=== PATIENT | female | born 1990 | race Caucasian/White ===

== ENCOUNTER → 2021-04-03 10:51 | Outpatient (CLI) | payer OTHER, SELFPAY ==
[2021-04-03 13:54] LABS: COVID19 -Nasal RAPID Negative (Negative)
== END ==
PROVIDERS: PCP Physician Assistant; Visit Provider Family Medicine Sleep Medicine
DX: Z20.822 Contact with and (suspected) exposure to COVID-19 (principal)
CPT/HCPCS: 87635; C9803

== ENCOUNTER 2021-04-06 12:30 | Day surgery (SDC) | payer OTHER, SELFPAY ==
[2021-04-06 12:56] VITALS: BP 137/89; PULSE 82; RESP 16; TEMP 37.9; O2SAT 100; BMI 27.4
[2021-04-06] MEDS: SODIUM CHLORIDE 0.9% 1,000 ML 84 ML IV (13:17)
--- NOTE | 2021-04-06 13:31 | PM.HP.1 ---
History of Present Illness History of Present Illness Date Patient Seen: 04/06/21 Time Patient Seen: 13:35 Chief complaint: DX COLONOSCOPY Narrative: Family history of colon cancer in her mother at age 29. Prior colonoscopy was negative in 2016. Patient History Family & Social History Social History: household members spouse Tobacco & Substance use: Tobacco type e-cigarettes Smoking Status Current every day smoker alcohol intake frequency a few times a month Substance Use Type does not use Meds Home Medications and Allergies Home Medications Medication Instructions Recorded Confirmed Type No Known Home Medications 04/06/21 04/06/21 History Allergies Allergy/AdvReac Type Severity Reaction Status Date / Time No Known Drug Allergies Allergy Verified 04/06/21 12:54 Review of Systems Review of Systems ROS: Yes All systems reviewed with the patient and are negative except as otherwise documented Exam Vital Signs (past 8 hours): - 04/06/21 12:56 Temperature 100.3 F H Pulse Rate 82 Respiratory Rate 16 Blood Pressure 137/89 Pulse Oximetry 100 Oxygen Delivery Method Room Air Const General: cooperative and comfortable Orientation: alert HENMT Head: normocephalic Ears: external ears normal Nose: external nose normal Face and sinus: normal facial exam Mouth: oral mucosae normal Eyes General: appearance normal, both eyes and all related structures Neck Neck: normal visual inspection Chest Chest: normal inspection of the chest Resp Effort & Inspection: normal respiratory effort GI Inspection: normal to inspection Skin General: no rashes or lesions noted and No jaundice Neuro General: patient alert and moves all extremities Cognition: normal cognition Speech: speech normal Extrem General: no pedal edema Psych Appearance: grossly normal Assessment & Plan Assessment & Plan narrative: 30-year-old female with a family history of colon cancer. Colonoscopy is pursued today. Time Spent With Patient Critical Care time: I spent a total of [] minutes of critical care time on this patient's care today; this time is exclusive of procedural time.
--- NOTE | 2021-04-06 13:37 | PM.PREOP ---
Pre-operative Note COVID-19 COVID-19 status: Negative Result date/Date tested (Pos, Neg/Pending): 04/03/21 Criteria for continued procedure: Possibility delay results in more complex future surgery or treatment Interval Note History & Physical reviewed/Exam performed by Physician: Yes Changes to H&P: No ASA Class (for procedural sedation): I
--- NOTE | 2021-04-06 14:47 | P.OP.COLON_ITS ---
Operative Date/Time/Diagnoses Date of procedure: 04/06/21 Time of procedure: 14:47 Pre-op diagnosis: Family history of colon cancer Post-op diagnosis: same Procedure & Clinicians Study performed: Colonoscopy Same procedure as scheduled: Yes Indications: Family history of colon cancer Surgeon: Levy Jackson Procedure Notes SCOAP/Timeout: Done Procedure in detail: After the risks and benefits were explained, written and verbal informed consent was obtained. The patient was brought into the procedure room and placed into the left lateral decubitus position. Please see nurse enterprise mobility architect notes for sedation details. Digital rectal examination was accomplished. The scope was introduced into the patient and advanced under direct visualization to the cecum as identified by the appendiceal orifice and ileocecal valve. The scope was slowly withdrawn to carefully examine the mucosa for any defects or lesions. Comprehensive imaging was accomplished throughout the rectum including the dentate line. The colon was decompressed, the scope was then removed from the patient who tolerated the procedure well. Bowel prep adequate Pediatric colonoscope Scope withdrawal time: 8 minutes Sedation minutes: 15 Specimen(s): none sent Complications: none Impression: No significant polyps mass lesions or inflammatory features identified throughout. Endoscopic diagnosis Visually normal colonoscopy Post-procedure Recommendations: Colonoscopy in 5 years Plan for aftercare: Considering family history, repeat colonoscopy 5 years. Disposition: PACU
[2021-04-06 14:49] VITALS: BP 126/86; PULSE 80; RESP 16; TEMP 36.2; O2SAT 98
[2021-04-06 14:51] VITALS: BP 122/72; PULSE 67; RESP 16; O2SAT 100
[2021-04-06 14:55] VITALS: BP 130/90; PULSE 65; RESP 16; O2SAT 99
[2021-04-06 15:00] VITALS: BP 130/88; PULSE 86; RESP 16; O2SAT 99
== END 2021-04-06 15:21 | disposition home or self-care (01) ==
PROVIDERS: PCP Physician Assistant; Referring Provider Internal Medicine Gastroenterology; Visit Provider Internal Medicine Gastroenterology
PROC: 0DJD8ZZ Inspection of Lower Intestinal Tract, Via Natural or Artificial Opening Endoscopic (ICD-10-PCS; CPT 45378; principal; 2021-04-06 14:30)
DX: Z12.11 Encounter for screening for malignant neoplasm of colon (principal); Z80.0 Family history of malignant neoplasm of digestive organs
CPT/HCPCS: 45378; J2704